=== PATIENT | male | born 1945 | race Caucasian/White ===

== ENCOUNTER 2023-11-05 20:33 | Emergency (ER) | payer OTHER, MEDICARE ==
[~2023-11-05] VITALS: Ht 185.4 cm; Wt 118.2 kg
[2023-11-05] MEDS: normal saline 1000ML IV soln IVB ONE (22:23)
[2023-11-05 22:38] LABS: BASOPHILS # (AUTO) 0.1 X10'3 (0-0.2); BASOPHILS % (AUTO) 0.6 % (0-1); EOSINOPHILS # (AUTO) 0.3 X10'3 (0-0.9); EOSINOPHILS % (AUTO) 3.3 % (0-6); HEMATOCRIT 41.8 % (42.0-52.0); HEMOGLOBIN 14.2 g/dl (14.0-17.9); LYMPHOCYTES # (AUTO) 1.6 X10'3 (1.1-4.8); LYMPHOCYTES % (AUTO) 17.7 % (21-51); MEAN CORPUSCULAR HEMOGLOBIN 29.6 PG (27.0-31.0); MEAN CORPUSCULAR HGB CONC 33.9 g/dL (33.0-36.5); MEAN CORPUSCULAR VOLUME 87.3 FL (78-98); MEAN PLATELET VOLUME 9.1 FL (7.4-10.4); MONOCYTES # (AUTO) 0.5 X10'3 (0-0.9); MONOCYTES % (AUTO) 6.1 % (2-12); NEUTROPHILS # (AUTO) 6.4 X10'3 (1.8-7.7); NEUTROPHILS % (AUTO) 72.3 % (42-75); PLATELET COUNT 198 X10'3 (140-440); RED BLOOD COUNT 4.79 X10'6 (4.70-6.10); RED CELL DISTRIBUTION WIDTH 14.9 % (11.5-14.5); WHITE BLOOD COUNT 8.9 X10'3 (4.5-11.0)
[2023-11-05 23:06] LABS: ANION GAP 9 (8-16); CHLORIDE 102 MMOL/L (99-107); CREATININE 1.43 MG/DL (0.60-1.10); LIPASE 47 U/L (16-77); POTASSIUM 4.1 MMOL/L (3.5-5.1); PRO BRAIN NATRIURETIC PEPTIDE 257 PG/ML (0-450); SODIUM 138 MMOL/L (135-145); TOTAL CARBON DIOXIDE 27.2 MMOL/L (24-32); eCRCL 48 ML/MIN; eGFR 48 ML/MIN
[2023-11-05] MEDS: insulin regular, human 10 units/0.1 ml syringe IV ONE (23:21)
[2023-11-05] MEDS: ondansetron/PF 4mg/2ml inj IV ONE (23:23)
[2023-11-05] MEDS: morphine 4 MG/ML inj SYRINge IV ONE (23:23)
[2023-11-05 23:28] LABS: ALBUMIN/GLOBULIN RATIO 0.9 (1.1-1.5); ALKALINE PHOSPHATASE 67 IU/L (46-116); ASPARTATE AMINO TRANSFERASE 21 U/L (10-37); BILIRUBIN,TOTAL 0.4 MG/DL (0.1-1.0); BLOOD UREA NITROGEN 19 MG/DL (7-18); BUN/CREATININE RATIO 13.3 (10.0-20.0); CALCIUM 8.5 MG/DL (8.5-10.1); TOTAL PROTEIN 6.6 G/DL (6.4-8.2)
[2023-11-05 23:43] LABS: ALANINE AMINOTRANSFERASE 37 U/L (12-78); ALBUMIN 3.2 G/DL (3.4-5.0); GLUCOSE 307 MG/DL (70-104)
[2023-11-05] MEDS ORDERED: METF-900 PO (23:44)
[2023-11-05] MEDS ORDERED: LANTUS SUBCUT (23:44)
[2023-11-06] MEDS: metFORMIN 500mg tablet PO ONE (00:13)
[2023-11-06 00:54] VITALS: BP 106/76; PULSE 61; RESP 18; TEMP 98.4; O2SAT 96
== END 2023-11-06 00:55 | disposition home or self-care (01) ==
LOC: ER 20:34
DX: E11.65 Type 2 diabetes mellitus with hyperglycemia (principal); I49.8 Other specified cardiac arrhythmias; Z79.4 Long term (current) use of insulin; Z79.84 Long term (current) use of oral hypoglycemic drugs
CPT/HCPCS: 36415; 71045; 80053; 82948; 83690; 83880; 84484; 85025; 93005; 96361; 96374; 96375; 99285; J1815; J2270; J2405; J7030